=== PATIENT | male | born 1935 | race Two or more races ===

== ENCOUNTER 2018-11-24 23:09 | Inpatient (IN) | payer MEDICARE, MEDICAID ==
[~2018-11-24] VITALS: Ht 172.7 cm; Wt 83.0 kg
[2018-11-25] MEDS ORDERED: GABAPENTIN 300 MG CAPSULE PO ONE
[2018-11-25] MEDS ORDERED: GABAPENTIN 300 MG CAPSULE ONE (00:08)
[2018-11-25] MEDS ORDERED: LIDOCAINE 5% PATCH TD ONE ×2 (00:09)
[2018-11-25 00:28] LABS: BASOPHILS % (AUTO) 0.2 % (0.0-2.0); HEMATOCRIT 34.5 % (36.7-47.1); HEMOGLOBIN 11.8 g/dL (12.5-16.3); LYMPHOCYTES # (AUTO) 0.3 K/uL (20.0-40.0); LYMPHOCYTES % (AUTO) 3.5 % (20.5-51.5); MEAN CORPUSCULAR HEMOGLOBIN 32.7 uug (23.8-33.4); MEAN CORPUSCULAR HGB CONC 34 g/dL (32.5-36.3); MONOCYTES # (AUTO) 0.9 K/uL (2.0-10.0); NEUTROPHILS # (AUTO) 8.3 K/uL (1.8-8.9); NEUTROPHILS % (AUTO) 87.3 % (38.5-71.5); PLATELET COUNT (AUTO) 141 K/uL (152-348); WHITE BLOOD COUNT (AUTO) 9.5 K/uL (3.6-10.2)
[2018-11-25 00:37] LABS: CARBON DIOXIDE 26 mmol/L (21-32); CHLORIDE 99 mmol/L (98-107); CREATININE 1.4 mg/dL (0.6-1.3); GLUCOSE 141 mg/dL (74-106); POTASSIUM 3.7 mmol/L (3.5-5.1); UREA NITROGEN, BLOOD 21 mg/dL (7-18)
[2018-11-25 00:48] LABS: ALANINE AMINOTRANSFERASE 24 U/L (16-63); ALKALINE PHOSPHATASE 42 U/L (50-136); ASPARTATE AMINOTRANSFERASE 43 U/L (15-37); BILIRUBIN,DIRECT 0.3 mg/dL (0.0-0.2); BILIRUBIN,TOTAL 0.8 mg/dL (0.2-1.0); TOTAL PROTEIN, SERUM 6.2 g/dL (6.4-8.2)
[2018-11-25] MEDS ORDERED: IOHEXOL 300MG/ML 100 ML INFUS..BTL ONE (00:57)
[2018-11-25] MEDS ORDERED: IV NORMAL SALINE 250 ML IV ONE (00:57)
[2018-11-25] MEDS ORDERED: SWABABLE VALVE TRANSFER SET EA MC ONE (00:57)
[2018-11-25] MEDS ORDERED: IV NORMAL SALINE 500 ML BAG IV ONE (01:00)
[2018-11-25 01:40] LABS: *BILIRUBIN,URIN NEGATIVE (NEGATIVE); *BLOOD, URINE 3+ (NEGATIVE); *CLARITY,URINE SLIGHTLY CLOUDY (CLEAR); *COLOR,URINE YELLOW (YELLOW); *KETONES,URINE 1+ (NEGATIVE); *UROBILINOGEN,URINE 0.2 E.U./dl (NORMAL); LEUKOCYTE ESTERASE ,URINE NEGATIVE (NEGATIVE); NITRITE, URINE NEGATIVE (NEGATIVE); PH,URINE 5.5 (5.0-8.0); UGLUCOSE TRACE (NEGATIVE)
[2018-11-25 01:44] LABS: BACTERIA,URINE NONE SEEN /HPF (NONE SEEN); URINE AMORPHOUS URATE MODERATE /HPF; WBC,URINE 0-3 /HPF (0-3)
[2018-11-25 01:45] LABS: SQUAMOUS EPITHELIAL CELL,UR FEW /HPF (NONE SEEN)
[2018-11-25] MEDS ORDERED: PIOG15TA8 PO (01:53)
[2018-11-25] MEDS ORDERED: LOSA25TA27 PO (01:53)
[2018-11-25] MEDS ORDERED: DABI150C PO (01:53)
[2018-11-25] MEDS ORDERED: ABIR500T PO (01:53)
[2018-11-25] MEDS ORDERED: TAMS-3 PO (01:53)
[2018-11-25] MEDS ORDERED: PRED2.5T PO (01:53)
[2018-11-25] MEDS ORDERED: ATOR20TA PO (01:53)
[2018-11-25] MEDS ORDERED: AZITHROMYCIN IV 500 MG in IV DEXTROSE 5% 250 ML IV ONE (02:30)
[2018-11-25] MEDS ORDERED: CEFTRIAXONE 1 G in IV DEXTROSE 5% 50 ML IV ONE (02:30)
[2018-11-25] MEDS ORDERED: CEFTRIAXONE 1 G VIAL ONE (02:49)
[2018-11-25] MEDS ORDERED: AZITHROMYCIN 500 MG VIAL IV ONE (02:50)
[2018-11-25] MEDS ORDERED: ONDANSETRON 4 MG/2 ML VIAL IV PRN (03:15)
[2018-11-25] MEDS ORDERED: Z GUARD REMEDY PASTE 57 GM TUBE TOP PRN (03:15)
[2018-11-25] MEDS ORDERED: HYDROCODONE/APAP 5-325MG TABLET PO PRN (03:15)
[2018-11-25] MEDS ORDERED: DEXTROSE 50% 50 ML DISP.SYRIN IV PRN (03:15)
[2018-11-25] MEDS ORDERED: MAGNESIUM HYDROXIDE 30 ML LIQUID UDC PO PRN (03:15)
[2018-11-25 03:40] VITALS: BP 144/52
[2018-11-25] MEDS: PANTOPRAZOLE SODIUM 40 MG TABLET.DR PO SCH (06:19)
[2018-11-25] MEDS: BLOOD SUGAR DIAGNOSTIC 1 EACH STRIP VI SCH ×4 (06:30→20:43)
[2018-11-25] MEDS: predniSONE 5 MG TABLET PO SCH (08:15)
[2018-11-25] MEDS: PIOGLITAZONE HCL 15 MG TABLET PO SCH (08:15)
[2018-11-25] MEDS: LOSARTAN POTASSIUM 25 MG TABLET PO SCH (08:15)
[2018-11-25] MEDS ORDERED: ABIRATERONE ACETATE 500 MG PO SCH (09:00)
[2018-11-25] MEDS ORDERED: predniSONE 2.5 MG TABLET PO SCH (09:00)
[2018-11-25] MEDS ORDERED: DABIGATRAN ETEXILATE MESYLATE 150 MG CAPSULE PO ONE (10:30)
[2018-11-25] MEDS: INSULIN REGULAR, HUMAN 300 UNIT/3 ML VIAL SQ PRN ×2 (11:02→16:29)
[2018-11-25] MEDS: ACETAMINOPHEN 325 MG TABLET PO PRN ×2 (11:07→20:33)
[2018-11-25 11:17] VITALS: BP 136/62
[2018-11-25 15:06] VITALS: BP 103/63
[2018-11-25 19:13] VITALS: BP 160/59
[2018-11-25] MEDS: TAMSULOSIN HCL 0.4 MG CAP.SR.24H PO SCH (20:33)
[2018-11-25] MEDS: ATORVASTATIN 20 MG TABLET PO SCH (20:33)
[2018-11-26] MEDS: AZITHROMYCIN IV 500 MG in IV DEXTROSE 5% 250 ML IV SCH (02:03)
[2018-11-26] MEDS: CEFTRIAXONE 1 G in IV DEXTROSE 5% 50 ML IV SCH (03:04)
[2018-11-26 03:16] VITALS: BP 114/46
[2018-11-26] MEDS: PANTOPRAZOLE SODIUM 40 MG TABLET.DR PO SCH (06:11)
[2018-11-26 06:23] LABS: BASOPHILS % (AUTO) 0.3 % (0.0-2.0); HEMATOCRIT 34.8 % (36.7-47.1); HEMOGLOBIN 11.6 g/dL (12.5-16.3); LYMPHOCYTES # (AUTO) 0.4 K/uL (20.0-40.0); MEAN CORPUSCULAR HEMOGLOBIN 32.2 uug (23.8-33.4); MEAN CORPUSCULAR HGB CONC 33 g/dL (32.5-36.3); MEAN CORPUSCULAR VOLUME 96.2 fL (73.0-96.2); MONOCYTES # (AUTO) 0.7 K/uL (2.0-10.0); MONOCYTES % (AUTO) 10.8 % (0.0-11.0); NEUTROPHILS # (AUTO) 5.2 K/uL (1.8-8.9); NEUTROPHILS % (AUTO) 82.9 % (38.5-71.5); PLATELET COUNT (AUTO) 136 K/uL (152-348); RED BLOOD CELL COUNT(AUTO) 3.62 MIL/uL (4.06-5.63); WHITE BLOOD COUNT (AUTO) 6.3 K/uL (3.6-10.2)
[2018-11-26] MEDS: BLOOD SUGAR DIAGNOSTIC 1 EACH STRIP VI SCH ×4 (06:30→21:40)
[2018-11-26 06:50] LABS: ALANINE AMINOTRANSFERASE 33 U/L (16-63); ALKALINE PHOSPHATASE 39 U/L (50-136); ASPARTATE AMINOTRANSFERASE 50 U/L (15-37); BILIRUBIN,TOTAL 0.4 mg/dL (0.2-1.0); CARBON DIOXIDE 27 mmol/L (21-32); CHLORIDE 101 mmol/L (98-107); CHOLESTEROL 93 mg/dL (<200); CREATININE 1.2 mg/dL (0.6-1.3); GLUCOSE 111 mg/dL (74-106); HDL CHOLESTEROL 35 mg/dL (40-60); MAGNESIUM 1.9 mg/dL (1.8-2.4); PHOSPHOROUS 2.5 mg/dL (2.5-4.9); POTASSIUM 3.2 mmol/L (3.5-5.1); TOTAL PROTEIN, SERUM 5.8 g/dL (6.4-8.2); TRIGLYCERIDES 112 MG/DL (30-150); UREA NITROGEN, BLOOD 20 mg/dL (7-18)
[2018-11-26] MEDS ORDERED: POTASSIUM CHLORIDE 20 MEQ TAB.PRT.SR PO ONE (10:15)
[2018-11-26 11:00] VITALS: BP 134/57
[2018-11-26] MEDS: PIOGLITAZONE HCL 15 MG TABLET PO SCH (11:38)
[2018-11-26] MEDS: ZYTIGA 500 MG PO SCH (11:38)
[2018-11-26] MEDS: predniSONE 5 MG TABLET PO SCH (11:38)
[2018-11-26] MEDS: LOSARTAN POTASSIUM 25 MG TABLET PO SCH (11:38)
[2018-11-26 16:00] VITALS: BP 145/72
[2018-11-26] MEDS: ACETAMINOPHEN 325 MG TABLET PO PRN (17:22)
[2018-11-26 20:00] VITALS: BP 115/70
[2018-11-26] MEDS: TAMSULOSIN HCL 0.4 MG CAP.SR.24H PO SCH (21:32)
[2018-11-26] MEDS: ATORVASTATIN 20 MG TABLET PO SCH (21:32)
[2018-11-26] MEDS: INSULIN REGULAR, HUMAN 300 UNIT/3 ML VIAL SQ PRN (22:00)
[2018-11-27] MEDS: AZITHROMYCIN IV 500 MG in IV DEXTROSE 5% 250 ML IV SCH (02:13)
[2018-11-27] MEDS: CEFTRIAXONE 1 G in IV DEXTROSE 5% 50 ML IV SCH (03:04)
[2018-11-27 05:21] VITALS: BP 124/83
[2018-11-27] MEDS: PANTOPRAZOLE SODIUM 40 MG TABLET.DR PO SCH (06:28)
[2018-11-27 06:30] LABS: BASOPHILS % (AUTO) 0.3 % (0.0-2.0); EOSINOPHILS % (AUTO) 0.2 % (0.0-7.0); HEMATOCRIT 34.4 % (36.7-47.1); HEMOGLOBIN 11.5 g/dL (12.5-16.3); LYMPHOCYTES # (AUTO) 0.4 K/uL (20.0-40.0); LYMPHOCYTES % (AUTO) 10.1 % (20.5-51.5); MEAN CORPUSCULAR HEMOGLOBIN 32.4 uug (23.8-33.4); MEAN CORPUSCULAR HGB CONC 34 g/dL (32.5-36.3); MEAN CORPUSCULAR VOLUME 96.5 fL (73.0-96.2); MONOCYTES # (AUTO) 0.6 K/uL (2.0-10.0); MONOCYTES % (AUTO) 14.3 % (0.0-11.0); NEUTROPHILS # (AUTO) 3.1 K/uL (1.8-8.9); NEUTROPHILS % (AUTO) 75.1 % (38.5-71.5); PLATELET COUNT (AUTO) 148 K/uL (152-348); RED BLOOD CELL COUNT(AUTO) 3.56 MIL/uL (4.06-5.63); WHITE BLOOD COUNT (AUTO) 4.1 K/uL (3.6-10.2)
[2018-11-27 06:37] LABS: CARBON DIOXIDE 30 mmol/L (21-32); CHLORIDE 104 mmol/L (98-107); CREATININE 1.2 mg/dL (0.6-1.3); GLUCOSE 118 mg/dL (74-106); POTASSIUM 3.9 mmol/L (3.5-5.1); UREA NITROGEN, BLOOD 21 mg/dL (7-18)
[2018-11-27] MEDS: BLOOD SUGAR DIAGNOSTIC 1 EACH STRIP VI SCH ×5 (07:05→21:00)
[2018-11-27] MEDS: PIOGLITAZONE HCL 15 MG TABLET PO SCH (08:36)
[2018-11-27] MEDS: ZYTIGA 500 MG PO SCH (08:36)
[2018-11-27] MEDS: predniSONE 5 MG TABLET PO SCH (08:36)
[2018-11-27] MEDS: LOSARTAN POTASSIUM 25 MG TABLET PO SCH (09:00)
[2018-11-27 11:10] VITALS: BP 126/42
[2018-11-27] MEDS: INSULIN REGULAR, HUMAN 300 UNIT/3 ML VIAL SQ PRN ×3 (11:59→21:46)
[2018-11-27 16:09] VITALS: BP 118/80
[2018-11-27 20:05] VITALS: BP 148/48
[2018-11-27] MEDS: ATORVASTATIN 20 MG TABLET PO SCH (20:18)
[2018-11-27] MEDS: TAMSULOSIN HCL 0.4 MG CAP.SR.24H PO SCH (20:18)
[2018-11-28] MEDS: AZITHROMYCIN IV 500 MG in IV DEXTROSE 5% 250 ML IV SCH (02:18)
[2018-11-28] MEDS: CEFTRIAXONE 1 G in IV DEXTROSE 5% 50 ML IV SCH (03:42)
[2018-11-28 05:48] VITALS: BP 129/54
[2018-11-28] MEDS: PANTOPRAZOLE SODIUM 40 MG TABLET.DR PO SCH (06:58)
[2018-11-28] MEDS: BLOOD SUGAR DIAGNOSTIC 1 EACH STRIP VI SCH (07:03)
[2018-11-28] MEDS: predniSONE 5 MG TABLET PO SCH (08:00)
[2018-11-28] MEDS ORDERED: [UNRECOGNIZED DRUG - OTHER] PO SCH (09:00)
[2018-11-28] MEDS: PIOGLITAZONE HCL 15 MG TABLET PO SCH (09:00)
[2018-11-28] MEDS: LOSARTAN POTASSIUM 25 MG TABLET PO SCH (09:00)
[2018-11-28] MEDS: ZYTIGA 500 MG PO SCH (09:00)
[2018-11-28] MEDS ORDERED: AMOX500T2 PO (09:15)
[2018-11-28] MEDS ORDERED: AZIT500T4 PO (09:15)
[2018-11-28] MEDS ORDERED: DABI150C PO (09:15)
== END 2018-11-28 10:30 | disposition home or self-care (01) | DRG 193 ==
LOC: ER 23:09 → MEDSURG3 11-25 03:29
PROVIDERS: ADMIT Family Medicine; ATTEND Nurse Practitioner Acute Care
DX: J15.9 Unspecified bacterial pneumonia (principal); N17.0 Acute kidney failure with tubular necrosis; I21.A1 Myocardial infarction type 2; E44.0 Moderate protein-calorie malnutrition; E87.1 Hypo-osmolality and hyponatremia; E87.2 Acidosis; E87.6 Hypokalemia; I48.2 Chronic atrial fibrillation; F17.210 Nicotine dependence, cigarettes, uncomplicated; I48.0 Paroxysmal atrial fibrillation; K57.30 Diverticulosis of large intestine without perforation or abscess without bleeding; D69.6 Thrombocytopenia, unspecified; Z68.27 Body mass index [BMI] 27.0-27.9, adult; E78.5 Hyperlipidemia, unspecified; N28.1 Cyst of kidney, acquired; I25.10 Atherosclerotic heart disease of native coronary artery without angina pectoris; E11.22 Type 2 diabetes mellitus with diabetic chronic kidney disease; I12.9 Hypertensive chronic kidney disease with stage 1 through stage 4 chronic kidney disease, or unspecified chronic kidney disease; N18.9 Chronic kidney disease, unspecified; G89.29 Other chronic pain; Z79.02 Long term (current) use of antithrombotics/antiplatelets; D63.8 Anemia in other chronic diseases classified elsewhere; R74.0 Nonspecific elevation of levels of transaminase and lactic acid dehydrogenase [LDH]; K42.9 Umbilical hernia without obstruction or gangrene; Z92.21 Personal history of antineoplastic chemotherapy; Z95.1 Presence of aortocoronary bypass graft; Z85.46 Personal history of malignant neoplasm of prostate
CPT/HCPCS: 36415; 70030-TC; 71045; 76700; 83735; 84100; 85025; 87040; 93005; 93307; 97110; 97116; 97530; A4663; G0378; J0456; J0696; J1815; J7040; J7050; J7060; J7512; Q9967

== ENCOUNTER 2018-12-14 17:11 | Inpatient (IN) | payer MEDICARE, MEDICAID ==
[~2018-12-14] VITALS: Ht 172.7 cm; Wt 81.6 kg
[~2018-12-14 17:11] MED LIST: ABIR500T PO; AMOX500T2 PO; ATOR20TA PO; AZIT500T4 PO; DABI150C PO; LOSA25TA27 PO; PIOG15TA8 PO; PRED2.5T PO; TAMS-3 PO
[2018-12-14 18:14] VITALS: BP 140/50
[2018-12-14] MEDS ORDERED: ACET-2154 PO (18:26)
[2018-12-14] MEDS ORDERED: CLOP75TA15 PO (18:26)
[2018-12-14] MEDS ORDERED: METO-356 PO (18:26)
[2018-12-14] MEDS ORDERED: DABI150C PO (18:26)
--- NOTE | 2018-12-14 18:49 | NUR ---
Admitted a 83 years old male patient at 1713 from [facility] Carlos Isaac. BIB 2 EMT staff with [facility]. Pt. is under the care of Dr. Feliciano and Dr. Pace ([facility]) who came with the following dx: Severe sepsis 2/2 bacterial PNA, toxic metabolic encephalopathy, acute HFrEF, NSTEMI, AMS, Afib, HTN, HLD, DM, Prostate CA, CAD, chronic renal insuf, chronic low back pain, multiple fall and CABG. Patient has NKA per report. Patient is full code. Patient is A/Ox4 verbally responsive and able to make his needs known. No SOB or acute distress, on RA and tolerating well. Denies pain during assessment. All pt. needs attended and met promptly. Lungs sounds clear to auscultation. Initial skin assessment revealed LT. eye hematoma from fall, no other skin condition noted. MRSA swab completed per unit protocol. Pt. on a Cardiac diet. Dr. Feliciano made aware of pt. admission. Dr. Pace notified of admission and requested med recon. Kept pt. clean and dry. Safety measures in place. Call light and all frequently used items within pt. reach. Emphasize use of call light system, pt. verbalized clear understanding. Will endorse to oncoming shift accordingly.
--- NOTE | 2018-12-14 19:30 | NUR ---
PATIENT RECEIVED IN BED WATCHING TV. ALERT AND ORIENTED X 4. NO C/O DISTRESS OR SOB AT THIS TIME. BRUISE NOTED ON LEFT SIDE OF FACE. INQUIRED TO HOW PATIENT RECEIVED BRUISE STATED THAT HE FELL AT HOME. C/O PAIN IN LEFT LEG DUE TO HITTING HIS LEG ON THE WAY TO THE BATHROOM EARLIER. WILL MEDICATE, AND LEG NOT NOTED TO HAVE ANY BRUISING OF DISCOLORATION AT THIS TIME. SIDE RAILS UP BILATERALLY FOR SAFETY. CALL LIGHT AND FREQUENTLY USED ITEMS WITHIN REACH. WILL CONTINUE TO MONITOR.
[2018-12-14 19:58] VITALS: BP 145/58
[2018-12-14] MEDS: TAMSULOSIN HCL 0.4 MG CAP.SR.24H PO SCH (20:15)
[2018-12-14] MEDS: ATORVASTATIN 20 MG TABLET PO SCH (20:15)
[2018-12-14] MEDS: ACETAMINOPHEN 325 MG TABLET PO PRN (20:15)
[2018-12-14] MEDS ORDERED: INSULIN REGULAR, HUMAN 300 UNIT/3 ML VIAL SQ PRN (21:15)
[2018-12-14] MEDS ORDERED: DEXTROSE 50% 50 ML DISP.SYRIN IV PRN (21:15)
[2018-12-14] MEDS: MELATONIN 3 MG TABLET PO PRN (22:29)
--- NOTE | 2018-12-14 22:45 | NUR ---
PATIENT NOTED TO BE UNABLE TO FALL ASLEEP.. PATIENT REQUEST NIGHT TIME SLEEP AID MELATONIN. MULTIPLE LAUNCH ROCKET SYSTEM CREWMEMBER MD CONTACTED. MELATONIN 3 MG HS PRN ORDERED. MEDICATION GIVEN TO PATIENT. WILL CONTINUE TO MONITOR.
[2018-12-15 05:43] VITALS: BP 129/46
--- NOTE | 2018-12-15 06:47 | NUR ---
PATIENT SLEPT ON AND OFF DURING TH CORRECTIONS IDENTIFICATION TECHNICIAN. ALL DUE MEDICATION GIVEN TOLERATED WELL. MELATONIN ASSISTED WITH SLEEP. SIDE RAILS UP BASILATERALLY FOR SAFETY. CALL LIGHT AND FREQUENTLY USED ITEM WITHIN REACH. WILL CONTINUE ENDORSE TO ONCOMING SHIFT ACCORDINGLY.
[2018-12-15] MEDS ORDERED: BLOOD SUGAR DIAGNOSTIC 1 EACH STRIP VI SCH (07:30)
[2018-12-15] MEDS: CLOPIDOGREL 75 MG TABLET PO SCH (08:30)
[2018-12-15] MEDS: predniSONE 5 MG TABLET PO SCH (08:31)
[2018-12-15] MEDS: PIOGLITAZONE HCL 15 MG TABLET PO SCH (08:31)
[2018-12-15] MEDS: METOPROLOL SUCCINATE XL 25 MG TAB.SR.24H PO SCH (08:31)
[2018-12-15 09:00] VITALS: BP 129/81
[2018-12-15] MEDS ORDERED: AMOXICILLIN TRIHYDRATE PO SCH (09:00)
[2018-12-15] MEDS ORDERED: ABIRATERONE ACETATE 500 MG PO SCH (09:00)
[2018-12-15] MEDS ORDERED: predniSONE 2.5 MG TABLET PO SCH (09:00)
[2018-12-15] MEDS ORDERED: DABIGATRAN ETEXILATE MESYLATE 150 MG CAPSULE PO ONE ×2 (10:30→21:00)
--- NOTE | 2018-12-15 10:44 | NUR ---
Patient noted resting in bed, noted walking to restroom at this time, no complaints of pain, no signs of distress noted, call light in reach, bed locked and in lowest position, all needs met at time
[2018-12-15] MEDS ORDERED: DEXTROSE 50% 50 ML DISP.SYRIN IV PRN (10:45)
[2018-12-15] MEDS: BLOOD SUGAR DIAGNOSTIC 1 EACH STRIP VI SCH ×3 (11:46→20:32)
[2018-12-15] MEDS: INSULIN REGULAR, HUMAN 300 UNIT/3 ML VIAL SQ PRN (17:11)
[2018-12-15 19:36] VITALS: BP 126/60
--- NOTE | 2018-12-15 19:45 | NUR ---
PATIENT RECEIVED IN BED DOZING. ALERT AND ORIENTED X 4. NO C/O PAIN, DISTRESS OR SOB AT THIS TIME. FAMILY AT THE BEDSIDE. REQUESTING SHOWER IN THE AM. SIDE RAILS UP BILATERALLY FOR SAFETY. CALL LIGHT AND FREQUENTLY USED ITEMS WITHIN REACH. WILL CONTINUE TO MONITOR.
[2018-12-15] MEDS: ATORVASTATIN 20 MG TABLET PO SCH (20:33)
[2018-12-15] MEDS: TAMSULOSIN HCL 0.4 MG CAP.SR.24H PO SCH (20:33)
[2018-12-15] MEDS: MELATONIN 3 MG TABLET PO PRN (20:33)
[2018-12-15] MEDS: ZOLPIDEM 5 MG TABLET PO PRN (23:44)
--- NOTE | 2018-12-15 23:45 | NUR ---
PATIENT NOTED TO BE UNABLE TO SLEEP. MELATONIN 3 MG GIVEN WITH 2100 MEDICATIONS, UNEFFECTIVE. PAPER AND PRINTS RESTORER MD DR. APPLE CONTACTED FOR SLEEPING MEDICATION ORDER. AMBIEN 5 MG PO HSPRN ORDERED. MEDICATION ADMINISTERED INSOMNIA CORRECTED. WILL CONTINUE TO MONITOR.
[2018-12-16 05:33] VITALS: BP 119/56
[2018-12-16] MEDS: ZYTIGA 500 MG PO SCH (06:11)
[2018-12-16] MEDS: BLOOD SUGAR DIAGNOSTIC 1 EACH STRIP VI SCH ×4 (06:30→20:44)
--- NOTE | 2018-12-16 06:43 | NUR ---
PATIENT SLEPT WELL ON GEOPHYSICAL PROSPECTING SURVEYOR. PRN AMBIEN GIVEN. ALL DUE MEDICATION GIVEN TOLERATED WELL. SPOKE WITH DAUGHTER ABOUT BRINGING MD ORDER FOR PRADAXA SOON POSSIBLE. SIDE RAILS UP BILATERALLY FOR SAFETY. CALL LIGHT AND FREQUENTLY USED ITEM WITHIN REACH. WILL CONTINUE ENDORSE TO ONCOMING SHIFT ACCORDINGLY.
[2018-12-16 09:00] VITALS: BP 119/45
[2018-12-16] MEDS: METOPROLOL SUCCINATE XL 25 MG TAB.SR.24H PO SCH (09:00)
[2018-12-16] MEDS: CLOPIDOGREL 75 MG TABLET PO SCH (09:43)
[2018-12-16] MEDS: PIOGLITAZONE HCL 15 MG TABLET PO SCH (09:43)
[2018-12-16] MEDS: predniSONE 5 MG TABLET PO SCH (09:44)
--- NOTE | 2018-12-16 10:30 | NUR ---
Patient noted sitting up on the side of the bed, no complaints of pain, no signs of distress noted, call light in reach, bed locked and in lowest position, full linen changed at this time, all needs met at time, took all AM medications, Metoprolol held due to low B/P
[2018-12-16] MEDS: INSULIN REGULAR, HUMAN 300 UNIT/3 ML VIAL SQ PRN ×2 (12:04→20:48)
--- NOTE | 2018-12-16 14:02 | NUR ---
Plus two pitting edema noted in both ankles, MD Morrison made aware with no new orders at this time, will encourage patient to elevate legs
[2018-12-16 17:00] VITALS: BP 134/53
[2018-12-16] MEDS ORDERED: DABIGATRAN ETEXILATE MESYLATE 150 MG CAPSULE PO ONE (18:15)
--- NOTE | 2018-12-16 19:26 | NUR ---
Patient given shower this shift, no complaints of pain, no distress noted
[2018-12-16 19:30] VITALS: BP 127/61
--- NOTE | 2018-12-16 19:30 | NUR ---
PATIENT RECEIVED IN BED VISITING WITH FAMILY. ALERT AND ORIENTED X 4. 2+ PITTING EDEMA NOTED IN LEFT FOOT AND LEG. MD NOTIFIED. NO C/O DISTRESS OR SOB. C/O PAIN IN LEFT LEG. WILL MEDICATE WITH TYLENOL. SIDE RAILS UP BILATERALLY FOR SAFETY. CALL LIGHT AND FREQUENTLY USED ITEMS WITHIN REACH. WILL CONTINUE TO MONITOR.
[2018-12-16] MEDS: TAMSULOSIN HCL 0.4 MG CAP.SR.24H PO SCH (20:39)
[2018-12-16] MEDS: ATORVASTATIN 20 MG TABLET PO SCH (20:40)
[2018-12-16] MEDS: ACETAMINOPHEN 325 MG TABLET PO PRN (20:40)
[2018-12-16] MEDS: ZOLPIDEM 5 MG TABLET PO PRN (20:47)
[2018-12-17 05:27] VITALS: BP 135/72
[2018-12-17] MEDS: ZYTIGA 500 MG PO SCH (06:06)
[2018-12-17] MEDS: BLOOD SUGAR DIAGNOSTIC 1 EACH STRIP VI SCH ×4 (06:30→20:16)
--- NOTE | 2018-12-17 06:46 | NUR ---
PATIENT SLEPT WELL ON MATERIAL EXPEDITOR. PRN AMBIEN GIVEN. NO C/O PAIN OR DISTRESS AT THIS TIME. ALL DUE MEDICATION GIVEN-TOLERATED WELL. LEGS ELEVATED TO DECREASE EDEMA. SIDE RAILS UP BILATERALLY FOR SAFETY. CALL LIGHT AND FREQUENTLY USED ITEM WITHIN REACH. WILL CONTINUE ENDORSE TO ONCOMING SHIFT ACCORDINGLY.
[2018-12-17 07:30] VITALS: BP 129/52
[2018-12-17 07:46] LABS: BASOPHILS % (AUTO) 0.6 % (0.0-2.0); EOSINOPHILS # (AUTO) 0.1 K/uL (0.0-0.7); HEMATOCRIT 28.7 % (36.7-47.1); HEMOGLOBIN 9.4 g/dL (12.5-16.3); LYMPHOCYTES # (AUTO) 0.8 K/uL (20.0-40.0); LYMPHOCYTES % (AUTO) 11.3 % (20.5-51.5); MEAN CORPUSCULAR HGB CONC 33 g/dL (32.5-36.3); MEAN CORPUSCULAR VOLUME 98.1 fL (73.0-96.2); MONOCYTES % (AUTO) 12.7 % (0.0-11.0); NEUTROPHILS # (AUTO) 5.6 K/uL (1.8-8.9); NEUTROPHILS % (AUTO) 74.4 % (38.5-71.5); PLATELET COUNT (AUTO) 192 K/uL (152-348); RED BLOOD CELL COUNT(AUTO) 2.93 MIL/uL (4.06-5.63); WHITE BLOOD COUNT (AUTO) 7.5 K/uL (3.6-10.2)
[2018-12-17 08:11] LABS: IRON, SERUM 79 ug/dL (50-175); THYROID STIMULATING HORMONE 1.866 mIU/mL (0.358-3.740)
[2018-12-17 08:31] LABS: ALANINE AMINOTRANSFERASE 24 U/L (16-63); ALKALINE PHOSPHATASE 114 U/L (50-136); ASPARTATE AMINOTRANSFERASE 20 U/L (15-37); BILIRUBIN,TOTAL 1.9 mg/dL (0.2-1.0); CARBON DIOXIDE 25 mmol/L (21-32); CHLORIDE 107 mmol/L (98-107); CHOLESTEROL 82 mg/dL (<200); CREATININE 1.1 mg/dL (0.6-1.3); GLUCOSE 145 mg/dL (74-106); HDL CHOLESTEROL 43 mg/dL (40-60); MAGNESIUM 1.7 mg/dL (1.8-2.4); POTASSIUM 3.4 mmol/L (3.5-5.1); TOTAL PROTEIN, SERUM 5.7 g/dL (6.4-8.2); TRIGLYCERIDES 123 MG/DL (30-150); UREA NITROGEN, BLOOD 23 mg/dL (7-18)
[2018-12-17] MEDS: predniSONE 5 MG TABLET PO SCH (08:38)
[2018-12-17] MEDS: CLOPIDOGREL 75 MG TABLET PO SCH (08:39)
[2018-12-17] MEDS: PIOGLITAZONE HCL 15 MG TABLET PO SCH (08:39)
[2018-12-17] MEDS ORDERED: DABIGATRAN ETEXILATE MESYLATE 150 MG CAPSULE PO ONE (09:00)
[2018-12-17] MEDS: METOPROLOL SUCCINATE XL 25 MG TAB.SR.24H PO SCH (09:42)
--- NOTE | 2018-12-17 10:17 | NUR ---
Received pt. in bed, comfortable in no distress. A/OX4 verbally responsive and able to make his needs known. All due medications given and tolerated well. No s/sx of bleeding on Pradaxa. Bilateral lower ext U/S revealed no evidence of DVT. All pt. needs attended and met promptly. Safety measures in place. Call light and all frequently used items within pt. reach.
[2018-12-17] MEDS ORDERED: POTASSIUM CHLORIDE 20 MEQ TAB.PRT.SR PO ONE (11:30)
[2018-12-17] MEDS: INSULIN REGULAR, HUMAN 300 UNIT/3 ML VIAL SQ PRN ×2 (12:35→17:03)
--- NOTE | 2018-12-17 13:05 | NUR ---
INDIVIDUALIZE OVERALL PLAN OF CARE
--- NOTE | 2018-12-17 18:21 | NUR ---
End of shift note: No significant change during this shift. All needs attended and met promptly. Safety measures in placed. Bed in low position, brake on, side rails up x2 as an enabler. No s/sx of hypo/hyperglycemia. Call light and all frequently used items within pt. reach. Will endorse to next shift accordingly
[2018-12-17 20:01] VITALS: BP 125/78
[2018-12-17] MEDS: TAMSULOSIN HCL 0.4 MG CAP.SR.24H PO SCH (20:19)
[2018-12-17] MEDS: ATORVASTATIN 20 MG TABLET PO SCH (20:19)
[2018-12-17] MEDS: DABIGATRAN 150 MG PO SCH (20:21)
--- NOTE | 2018-12-17 20:56 | NUR ---
Received pt sitting on the chair. AAO x4. Daughter at bedside. No acute distress noted. Denies pain/discomfort. Accucheck 128, no insulin coverage as per sliding scale. All due meds given as ordered. Pt is back to bed at this time. Safety measures maintained. Call light and personal belongings within reach. Will continue to monitor.
[2018-12-17] MEDS ORDERED: MAG HYDROX/AL HYDROX/SIMETH 30 ML LIQUID UDC PO PRN (21:15)
[2018-12-17] MEDS: ZOLPIDEM 5 MG TABLET PO PRN (21:16)
--- NOTE | 2018-12-17 21:20 | NUR ---
Pt requested Maalox for indigestion/ upset stomach. New order received from Dr. Feliciano. Carried out order. Will continue to monitor.
[2018-12-18 05:39] VITALS: BP 113/42
[2018-12-18] MEDS: ZYTIGA 500 MG PO SCH (06:33)
[2018-12-18] MEDS: BLOOD SUGAR DIAGNOSTIC 1 EACH STRIP VI SCH ×4 (06:39→21:28)
[2018-12-18 08:14] VITALS: BP 143/50
[2018-12-18] MEDS: predniSONE 5 MG TABLET PO SCH (08:45)
[2018-12-18] MEDS: CLOPIDOGREL 75 MG TABLET PO SCH (08:46)
[2018-12-18] MEDS: PIOGLITAZONE HCL 15 MG TABLET PO SCH (08:46)
[2018-12-18] MEDS: DABIGATRAN 150 MG PO SCH ×2 (08:47→19:03)
[2018-12-18] MEDS: METOPROLOL SUCCINATE XL 25 MG TAB.SR.24H PO SCH (08:49)
--- NOTE | 2018-12-18 14:54 | NUR ---
INTERDISCIPLINARY TEAM CONFERENCE
[2018-12-18 16:49] VITALS: BP 133/50
--- NOTE | 2018-12-18 19:20 | NUR ---
Awake during initial rounds. Alert and oriented x4. Able to make needs known. Daughter at bedside, both eating eating dinner at this time. No problem presented. Denies any pain/discomforts at this time. Safety measure and fall precaution maintained. Continue care as planned.
[2018-12-18 21:15] VITALS: BP 133/49
[2018-12-18] MEDS: ATORVASTATIN 20 MG TABLET PO SCH (21:25)
[2018-12-18] MEDS: TAMSULOSIN HCL 0.4 MG CAP.SR.24H PO SCH (21:25)
[2018-12-18] MEDS: ZOLPIDEM 5 MG TABLET PO PRN (21:29)
[2018-12-18] MEDS: INSULIN REGULAR, HUMAN 300 UNIT/3 ML VIAL SQ PRN (21:33)
--- NOTE | 2018-12-18 21:34 | NUR ---
BS 143 mg/dl. Sliding scale coverage not given. Pt refused.
[2018-12-19] MEDS: ZYTIGA 500 MG PO SCH (05:38)
[2018-12-19] MEDS: BLOOD SUGAR DIAGNOSTIC 1 EACH STRIP VI SCH ×4 (06:33→21:03)
--- NOTE | 2018-12-19 06:37 | NUR ---
Shift End Report: Slept well. All needs attended and met. No significant event reported all night. Continue current rehab plan of care.
[2018-12-19 07:10] VITALS: BP 122/51
[2018-12-19 08:16] VITALS: BP 140/60
[2018-12-19] MEDS: METOPROLOL SUCCINATE XL 25 MG TAB.SR.24H PO SCH (10:05)
[2018-12-19] MEDS: CLOPIDOGREL 75 MG TABLET PO SCH (10:05)
[2018-12-19] MEDS: PIOGLITAZONE HCL 15 MG TABLET PO SCH (10:06)
[2018-12-19] MEDS: predniSONE 5 MG TABLET PO SCH (10:06)
[2018-12-19] MEDS: DABIGATRAN 150 MG PO SCH ×2 (10:42→16:51)
[2018-12-19 18:47] VITALS: BP 131/51
--- NOTE | 2018-12-19 19:20 | NUR ---
Received patient sitting at the edge of bed, having his dinner. Denies nay pain/discomforts at thsi time. family at bedside. safety measure nad fall precaution maintained. Continue care as planned.
[2018-12-19] MEDS: TAMSULOSIN HCL 0.4 MG CAP.SR.24H PO SCH (21:00)
[2018-12-19] MEDS: ATORVASTATIN 20 MG TABLET PO SCH (21:00)
[2018-12-19] MEDS: INSULIN REGULAR, HUMAN 300 UNIT/3 ML VIAL SQ PRN (21:03)
--- NOTE | 2018-12-19 21:04 | NUR ---
BS 132 mg/dl, again, pt refused sliding scale coverage. Will endorse to next shift in Am.
[2018-12-19 21:23] VITALS: BP 139/41
[2018-12-19] MEDS: ZOLPIDEM 5 MG TABLET PO PRN (23:19)
[2018-12-20 05:00] VITALS: BP 140/42
[2018-12-20] MEDS: ZYTIGA 500 MG PO SCH (06:30)
--- NOTE | 2018-12-20 06:34 | NUR ---
Refused accu check this time. Will endorse.
[2018-12-20 07:05] VITALS: BP 145/51
[2018-12-20] MEDS: BLOOD SUGAR DIAGNOSTIC 1 EACH STRIP VI SCH ×4 (07:30→20:26)
[2018-12-20] MEDS: DABIGATRAN 150 MG PO SCH ×2 (09:01→17:17)
[2018-12-20] MEDS: METOPROLOL SUCCINATE XL 25 MG TAB.SR.24H PO SCH (09:02)
[2018-12-20] MEDS: CLOPIDOGREL 75 MG TABLET PO SCH (09:02)
[2018-12-20] MEDS: PIOGLITAZONE HCL 15 MG TABLET PO SCH (09:03)
[2018-12-20] MEDS: predniSONE 5 MG TABLET PO SCH (09:03)
[2018-12-20 14:00] VITALS: BP 112/51
--- NOTE | 2018-12-20 19:20 | NUR ---
Seen ambulating in the hallway with FWW accompanied by her daughter during initial rounds. No SOB/SOBOE noted. Denies any pain at this time. Left pedal more swollen than the left. Encouraged elevation of BLE to reduce edema and limit salt/water intake as well. Both verbalized understanding. Safety measure and fall precaution maintained. Continue care as planned.
[2018-12-20 20:15] VITALS: BP 150/51
--- NOTE | 2018-12-20 20:15 | NUR ---
Seen by Dr Adams with no new order noted.
[2018-12-20] MEDS: TAMSULOSIN HCL 0.4 MG CAP.SR.24H PO SCH (20:20)
[2018-12-20] MEDS: ATORVASTATIN 20 MG TABLET PO SCH (20:21)
[2018-12-20] MEDS: INSULIN REGULAR, HUMAN 300 UNIT/3 ML VIAL SQ PRN (20:26)
--- NOTE | 2018-12-20 20:28 | NUR ---
BS 136 mg/dl, again patient refused sliding scale coverage. Denies any s/s of hyperglycemia. Will monitor.
[2018-12-20] MEDS: ZOLPIDEM 5 MG TABLET PO PRN (22:34)
[2018-12-21 04:53] VITALS: BP 119/46
--- NOTE | 2018-12-21 05:45 | NUR ---
Shift End Report: Slept at long interval today after Ambien was given as ordered. No s/s of hypo/hyperglycemia noted. All needs attended and met. Made comfortable at all times. No significant event reported all night. Continue current plan of care.
[2018-12-21] MEDS: ZYTIGA 500 MG PO SCH (06:13)
[2018-12-21] MEDS: BLOOD SUGAR DIAGNOSTIC 1 EACH STRIP VI SCH ×2 (06:16→11:30)
[2018-12-21 07:44] VITALS: BP 116/32
[2018-12-21] MEDS: CLOPIDOGREL 75 MG TABLET PO SCH (08:16)
[2018-12-21] MEDS: METOPROLOL SUCCINATE XL 25 MG TAB.SR.24H PO SCH (08:17)
[2018-12-21] MEDS: DABIGATRAN 150 MG PO SCH (08:17)
[2018-12-21] MEDS: PIOGLITAZONE HCL 15 MG TABLET PO SCH (08:18)
[2018-12-21] MEDS: predniSONE 5 MG TABLET PO SCH (08:18)
--- NOTE | 2018-12-21 08:30 | NUR ---
Received patient, awake, alert x4. Up with occupational therapy, tolerating well. Not in any form of distress. No S/S of infection. Denies any pain. Able to ambulate with front wheel walker. For possible discharge today.
[2018-12-21 10:56] VITALS: BP 132/40
--- NOTE | 2018-12-21 11:30 | NUR ---
Discharge order obtained from Dr Feliciano. Discharge packet and education explained to Puja, daughter and patient. Instructed to take blood pressure prior to taking blood pressure medication, Metoprolol. Instructed to follow-up with Dr Gutierrez on 12/29/18 at 13:15. Instructed to take medications as prescribed and to ambulate with front wheel walker. Instructed to have low salt and low fat diet. Refused blood sugar checks at this time since patient wanted to go home. Discussed risks and benefits but patient still refused. Discharge to home per wheelchair in stable condition. Accompanied by Puja daughter via private transport.
== END 2018-12-21 11:30 | disposition home health service (06) | DRG 871 ==
PROVIDERS: ADMIT Physical Medicine & Rehabilitation Pain Medicine; ATTEND Physical Medicine & Rehabilitation Pain Medicine
DX: A41.9 Sepsis, unspecified organism (principal); I50.21 Acute systolic (congestive) heart failure; J15.9 Unspecified bacterial pneumonia; G92 Toxic encephalopathy; I21.4 Non-ST elevation (NSTEMI) myocardial infarction; I13.0 Hypertensive heart and chronic kidney disease with heart failure and stage 1 through stage 4 chronic kidney disease, or unspecified chronic kidney disease; S70.12XD Contusion of left thigh, subsequent encounter; R65.20 Severe sepsis without septic shock; E11.22 Type 2 diabetes mellitus with diabetic chronic kidney disease; N18.9 Chronic kidney disease, unspecified; D64.9 Anemia, unspecified; E78.5 Hyperlipidemia, unspecified; I25.10 Atherosclerotic heart disease of native coronary artery without angina pectoris; I48.91 Unspecified atrial fibrillation; G89.29 Other chronic pain; M54.5 Low back pain; R29.6 Repeated falls; Z95.1 Presence of aortocoronary bypass graft; Z92.21 Personal history of antineoplastic chemotherapy; Z85.46 Personal history of malignant neoplasm of prostate; Z87.891 Personal history of nicotine dependence
CPT/HCPCS: 36415; 70030-TC; 71045; 73620; 83550; 83735; 84100; 84443; 85025; 85610; 92523; 97110; 97112; 97116; 97165; 97530; 97535; J1815; J7512

== ENCOUNTER 2020-05-11 10:33 | Outpatient (CLI) | payer MEDICARE, OTHER ==
[~2020-05-11 10:33] MED LIST changes: +ACET-2154 PO; -AMOX500T2 PO; +CLOP75TA15 PO; -LOSA25TA27 PO; +METO-356 PO
== END 2020-05-11 23:59 | disposition home or self-care (01) ==
LOC: LAB 10:33
PROVIDERS: ATTEND Dermatology MOHS-Micrographic Surgery
DX: Z01.812 Encounter for preprocedural laboratory examination (principal); Z20.828 Contact with and (suspected) exposure to other viral communicable diseases; H26.9 Unspecified cataract

== ENCOUNTER 2020-05-15 06:19 | Day surgery (SDC) | payer MEDICARE, OTHER ==
[2020-05-15] MEDS ORDERED: KETOROLAC 0.5% OPHT DROP 3 ML BOTTLE ONE (06:47)
[2020-05-15] MEDS ORDERED: CIPROFLOXACIN 0.3% OPHT DROP 2.5 ML BOTTLE ONE (06:48)
[2020-05-15] MEDS ORDERED: TETRACAINE HCL 0.5% OPHT DROP 2 ML BOTTLE ONE ×2 (06:48→06:59)
[2020-05-15] MEDS ORDERED: PHENYLEPHRINE 2.5% OPHT DROP 2 ML BOTTLE ONE (06:48)
[2020-05-15] MEDS ORDERED: CYCLOPENTOLATE 1% OPHT DROP 2 ML BOTTLE ONE (06:48)
[2020-05-15] MEDS ORDERED: NEO/POLYMYX B/DEXAME OPHT OINT 3.5 GM TUBE ONE ×2 (06:58→08:58)
[2020-05-15] MEDS ORDERED: LIDOCAINE-MPF 2% , 2 ML VIAL ONE (06:58)
[2020-05-15] MEDS ORDERED: PILOCARPINE 1% OPHT DROP 15 ML BOTTLE ONE ×2 (06:58→07:04)
[2020-05-15] MEDS ORDERED: BUPIVACAINE PF 0.5% 30 ML VIAL ONE (06:59)
[2020-05-15] MEDS ORDERED: TRYPAN BLUE 0.5 ML DISP.SYRIN ONE (06:59)
[2020-05-15] MEDS ORDERED: BALANCED SALT IRRIG SOLN COMB2 15 ML IRRIG.SOLN ONE ×2 (06:59→08:20)
[2020-05-15] MEDS ORDERED: BALANCED SALT IRRIG SOLN COMB1 500 ML, EPINEPHRINE-PF 1:1000 1 MG IO ONE ×2 (07:00)
[2020-05-15 07:02] LABS: BASOPHILS # (AUTO) 0.1 K/uL (0.0-8.0); BASOPHILS % (AUTO) 0.7 % (0.0-2.0); EOSINOPHILS # (AUTO) 0.1 K/uL (0.0-0.7); EOSINOPHILS % (AUTO) 0.8 % (0.0-7.0); HEMATOCRIT 42.2 % (36.7-47.1); HEMOGLOBIN 14.3 g/dL (12.5-16.3); LYMPHOCYTES # (AUTO) 1.5 K/uL (20.0-40.0); LYMPHOCYTES % (AUTO) 15.8 % (20.5-51.5); MEAN CORPUSCULAR HEMOGLOBIN 32.6 uug (23.8-33.4); MEAN CORPUSCULAR HGB CONC 34 g/dL (32.5-36.3); MEAN CORPUSCULAR VOLUME 95.8 fL (73.0-96.2); MONOCYTES # (AUTO) 0.9 K/uL (2.0-10.0); NEUTROPHILS # (AUTO) 6.8 K/uL (1.8-8.9); NEUTROPHILS % (AUTO) 72.7 % (38.5-71.5); PLATELET COUNT (AUTO) 167 K/uL (152-348); WHITE BLOOD COUNT (AUTO) 9.4 K/uL (3.6-10.2)
[2020-05-15] MEDS ORDERED: BUPIVACAINE/EPI PF 0.5% 10 ML VIAL ONE (07:02)
[2020-05-15] MEDS ORDERED: ACETYLCHOLINE CHLORIDE 1% OPHT 1 EA KIT ONE (07:03)
[2020-05-15 07:10] LABS: CREATININE 1.3 mg/dL (0.6-1.3); POTASSIUM 4.5 mmol/L (3.5-5.1)
[2020-05-15 07:16] LABS: BILIRUBIN,TOTAL 0.7 mg/dL (0.2-1.0); TOTAL PROTEIN, SERUM 6.9 g/dL (6.4-8.2)
[2020-05-15] MEDS ORDERED: EPINEPHRINE 1 MG/1 ML AMP ONE ×2 (07:25→08:33)
[2020-05-15] MEDS ORDERED: LIDOCAINE 1%-EPI 1:100,000 20 ML VIAL ONE (07:25)
[2020-05-15] MEDS ORDERED: MIDAZOLAM HCL 2 MG/2 ML VIAL ONE (08:03)
[2020-05-15] MEDS ORDERED: FENTANYL CITRATE 100 MCG/2 ML AMPUL ONE (08:03)
[2020-05-15] MEDS ORDERED: hydrALAZINE HCL 20 MG/1 ML VIAL ONE (09:16)
== END 2020-05-15 10:35 | disposition home or self-care (01) ==
LOC: DS 06:19
PROVIDERS: ATTEND Dermatology MOHS-Micrographic Surgery
DX: H25.89 Other age-related cataract (principal); I25.810 Atherosclerosis of coronary artery bypass graft(s) without angina pectoris; I10 Essential (primary) hypertension; I48.91 Unspecified atrial fibrillation; I73.9 Peripheral vascular disease, unspecified; E78.5 Hyperlipidemia, unspecified; Z79.899 Other long term (current) drug therapy; Z98.890 Other specified postprocedural states; Z72.0 Tobacco use; Z98.61 Coronary angioplasty status
CPT/HCPCS: 36415; 66984; 71045; 80053; 85025; 85730; J0171 ×3; J0360; J2250; J3010; J3490 ×2; J7120; V2632; A4663; J3590; Q9968